=== PATIENT | male | born 1950 | race Caucasian/White ===

== ENCOUNTER → 2016-12-10 | Outpatient (CLI) | payer BC, OTHER | LOC: FIMAGING 13:35 | PROVIDERS: ATTEND Psychiatry & Neurology Neurology | DX: R41.89 Other symptoms and signs involving cognitive functions and awareness (principal); R46.89 Other symptoms and signs involving appearance and behavior; R06.83 Snoring; J34.1 Cyst and mucocele of nose and nasal sinus ==